=== PATIENT | male | born 1930 | race Caucasian/White ===

== ENCOUNTER 2017-05-09 17:51 | Inpatient (IN) | payer MEDICARE, OTHER ==
[~2017-05-09] VITALS: Ht 177.8 cm; Wt 80.0 kg
[2017-05-09] MEDS ORDERED: METH2.5T PO (18:27)
[2017-05-09] MEDS ORDERED: FOLI-17 PO (18:27)
[2017-05-09] MEDS ORDERED: PLEASE ENTER ALLERGIES MC SCH ×2 (18:30)
[2017-05-09] MEDS ORDERED: SODIUM CHLORIDE FLUSH 10ML SYR IVF ONE (18:30)
[2017-05-09 18:32] LABS: HEMATOCRIT 31.3 % (39.2-51.8); HEMOGLOBIN 10.6 g/dL (13.7-18.0); WHITE BLOOD COUNT 6.3 x10^3/uL (3.4-10)
[2017-05-09 18:41] LABS: ASPARTATE AMINO TRANSFERASE 20 U/L (15-37); BLOOD UREA NITROGEN 30 mg/dL (7-18)
[2017-05-09 18:46] LABS: IS PT STATUS REG ER OR PRE ER? YES
[2017-05-09] MEDS ORDERED: APIX2.5T PO (19:13)
[2017-05-09] MEDS ORDERED: SPIR25TA3 PO (19:13)
[2017-05-09] MEDS ORDERED: CARV6.2512 PO (19:13)
[2017-05-09] MEDS ORDERED: FURO-92 PO (19:13)
[2017-05-09] MEDS ORDERED: LISI-167 PO (19:13)
[2017-05-09] MEDS ORDERED: SIMV40TA3 PO (19:13)
[2017-05-09] MEDS ORDERED: HYDROCORTISONE 100 MG INJ. IVPush ONE (19:30)
[2017-05-09] MEDS ORDERED: SODIUM CHLORIDE 0.9% 1,000ML IVBOLUS ONE (19:30)
[2017-05-09] MEDS ORDERED: SODIUM CHLORIDE 0.9% 1,000 ML IV SCH (20:25)
[2017-05-09] MEDS ORDERED: ONDANSETRON 2MG/ML, 2ML IVPush PRN (20:30)
[2017-05-09] MEDS ORDERED: DOCUSATE 100 MG CAPSULE PO PRN (20:30)
[2017-05-09] MEDS ORDERED: POLYETHYLENE GLYCOL 17 GM PACKET PO PRN (20:30)
[2017-05-09] MEDS ORDERED: HYDROcodone/APAP 5/325 TABLET PO PRN (20:30)
[2017-05-09] MEDS ORDERED: morphine SULFATE 10 MG/ML, 1ML IVPush PRN (20:30)
[2017-05-09] MEDS ORDERED: APIXABAN 2.5 MG TABLET PO SCH (21:00)
[2017-05-09] MEDS: SIMVASTATIN 40 MG TABLET PO SCH (22:15)
[2017-05-10 02:32] VITALS: BP 92/58
[2017-05-10 06:15] LABS: BLOOD UREA NITROGEN 32 mg/dL (7-18)
[2017-05-10 06:18] LABS: IS PT STATUS REG ER OR PRE ER? NO
[2017-05-10 06:49] VITALS: BP 94/42
[2017-05-10] MEDS: SENNA/DOCUSATE TABLET PO SCH (09:00)
[2017-05-10] MEDS ORDERED: CEFAZOLIN PMX 1GM/50ML 50 ML IVPB ONE (09:30)
[2017-05-10] MEDS: METHOTREXATE 2.5 MG TABLET PO SCH (11:36)
[2017-05-10] MEDS: FOLIC ACID 1 MG TABLET PO SCH (11:36)
[2017-05-10 14:15] VITALS: BP 102/54
[2017-05-10 18:54] VITALS: BP 112/62
[2017-05-10] MEDS: SIMVASTATIN 40 MG TABLET PO SCH (20:18)
[2017-05-11 02:10] VITALS: BP 103/55
[2017-05-11 05:11] LABS: BLOOD UREA NITROGEN 21 mg/dL (7-18)
[2017-05-11 05:17] LABS: ASPARTATE AMINO TRANSFERASE 11 U/L (15-37)
[2017-05-11 06:54] VITALS: BP 118/52
[2017-05-11] MEDS ORDERED: SODIUM CHLORIDE 0.9% 1,000 ML IV SCH (07:00)
[2017-05-11] MEDS: SENNA/DOCUSATE TABLET PO SCH (09:00)
[2017-05-11] MEDS ORDERED: LISINOPRIL 5 MG TABLET PO SCH (09:00)
[2017-05-11] MEDS: METHOTREXATE 2.5 MG TABLET PO SCH (09:00)
[2017-05-11] MEDS ORDERED: MIDAZOLAM 1 MG/ML, 5ML ONE (09:21)
[2017-05-11] MEDS ORDERED: FENTANYL PF 100 MCG/2ML ONE (09:21)
[2017-05-11] MEDS ORDERED: LIDOCAINE 2%, 20ML ONE (09:22)
[2017-05-11] MEDS ORDERED: CEFAZOLIN 1,000 MG ONE (09:22)
[2017-05-11] MEDS ORDERED: CEFAZOLIN PMX 1GM/50ML 50 ML ONE (09:22)
[2017-05-11] MEDS ORDERED: CEFAZOLIN PMX 1GM/50ML 50 ML IV ONE (09:30)
[2017-05-11] MEDS: FOLIC ACID 1 MG TABLET PO SCH (12:58)
[2017-05-11 14:45] VITALS: BP 120/60
[2017-05-11] MEDS ORDERED: METHOTREXATE 2.5 MG TABLET PO ONE (15:00)
[2017-05-11] MEDS: ACETAMINOPHEN 325 MG TABLET PO PRN (15:25)
[2017-05-11] MEDS: CEFAZOLIN PMX 1GM/50ML 50 ML IVPB SCH (18:36)
[2017-05-11 18:59] VITALS: BP 111/51
[2017-05-11] MEDS: SIMVASTATIN 40 MG TABLET PO SCH (19:43)
[2017-05-12 00:41] VITALS: BP 128/62
[2017-05-12] MEDS: ACETAMINOPHEN 325 MG TABLET PO PRN (01:05)
[2017-05-12] MEDS: CEFAZOLIN PMX 1GM/50ML 50 ML IVPB SCH (02:06)
[2017-05-12 05:10] LABS: BLOOD UREA NITROGEN 16 mg/dL (7-18)
[2017-05-12 05:48] LABS: DIFF TOTAL CELLS COUNTED 100 CELL DIFF; HEMATOCRIT 29.2 % (39.2-51.8); WHITE BLOOD COUNT 6.4 x10^3/uL (3.4-10)
[2017-05-12 05:50] LABS: VERIFY COUNTS? YES
[2017-05-12 05:51] LABS: ANISOCYTOSIS 1+; POLYCHROMASIA 1+
[2017-05-12 06:42] VITALS: BP 112/57
[2017-05-12] MEDS: SENNA/DOCUSATE TABLET PO SCH (09:00)
[2017-05-12] MEDS: FOLIC ACID 1 MG TABLET PO SCH (09:24)
[2017-05-12] MEDS ORDERED: LISINOPRIL 5 MG TABLET PO SCH (09:42)
[2017-05-12] MEDS ORDERED: CARVEDILOL 6.25 MG TABLET PO SCH (10:00)
[2017-05-12] MEDS ORDERED: APIXABAN 5 MG TABLET PO SCH (10:00)
[2017-05-12] MEDS ORDERED: LISI5TAB7 PO (10:53)
[2017-05-12 11:54] VITALS: BP 117/61
[2017-05-12 12:30] VITALS: BP 118/58
[2017-05-17] MEDS ORDERED: METHOTREXATE 2.5 MG TABLET PO SCH ×3 (08:00→09:00)
== END 2017-05-12 14:45 | disposition home health service (06) | DRG 242 ==
LOC: ED 18:06 → EDIP 20:04 → 5SO 21:30 → DCLOUNGE 05-12 14:40
PROVIDERS: ADMIT Family Medicine; ATTEND Family Medicine
PROC: 02HK3JZ Insertion of Pacemaker Lead into Right Ventricle, Percutaneous Approach (ICD-10-PCS; principal; 2017-05-11)
PROC: 0JH604Z Insertion of Pacemaker, Single Chamber into Chest Subcutaneous Tissue and Fascia, Open Approach (ICD-10-PCS; 2017-05-11)
PROC: 4B02XSZ Measurement of Cardiac Pacemaker, External Approach (ICD-10-PCS; 2017-05-12)
DX: I49.5 Sick sinus syndrome (principal); N17.0 Acute kidney failure with tubular necrosis; I95.9 Hypotension, unspecified; D68.69 Other thrombophilia; I13.0 Hypertensive heart and chronic kidney disease with heart failure and stage 1 through stage 4 chronic kidney disease, or unspecified chronic kidney disease; G90.9 Disorder of the autonomic nervous system, unspecified; I50.22 Chronic systolic (congestive) heart failure; I48.2 Chronic atrial fibrillation; N18.3 Chronic kidney disease, stage 3 (moderate); E86.0 Dehydration; D53.9 Nutritional anemia, unspecified; E78.2 Mixed hyperlipidemia; G47.33 Obstructive sleep apnea (adult) (pediatric); I25.10 Atherosclerotic heart disease of native coronary artery without angina pectoris; I25.5 Ischemic cardiomyopathy; I35.1 Nonrheumatic aortic (valve) insufficiency; I73.9 Peripheral vascular disease, unspecified; M06.9 Rheumatoid arthritis, unspecified; Z96.641 Presence of right artificial hip joint; Z96.652 Presence of left artificial knee joint; I44.7 Left bundle-branch block, unspecified; M19.90 Unspecified osteoarthritis, unspecified site; Z79.899 Other long term (current) drug therapy; Z79.01 Long term (current) use of anticoagulants; I25.2 Old myocardial infarction; Z80.9 Family history of malignant neoplasm, unspecified; Z86.79 Personal history of other diseases of the circulatory system; Z87.891 Personal history of nicotine dependence
CPT/HCPCS: 33207; 36415; 70450; 71010; 80048; 80053; 80061; 81003; 84443; 84481; 84484; 85025; 85610; 85730; 93005; 93306; 96361; 96374; 99156; 99157; C1779; C1786; C1892; J0690; J2250; J3010; J3490; J8610; J1720; J7030

== ENCOUNTER 2018-02-10 16:10 | Emergency (ER) | payer MEDICARE, OTHER ==
[~2018-02-10] VITALS: Ht 172.7 cm; Wt 74.0 kg
[~2018-02-10 16:10] MED LIST: APIX2.5T PO; CARV6.2512 PO; FOLI-17 PO; FURO-92 PO; LISI-167 PO; LISI5TAB7 PO; METH2.5T PO; SIMV40TA3 PO; SPIR25TA5 PO
[2018-02-10 17:04] LABS: BASOPHILS # (AUTO) 0.02 x10^3/uL (0-0.1); BASOPHILS % (AUTO) 0 % (0-1); EOSINOPHILS # (AUTO) 0.12 x10^3/uL (0-0.4); EOSINOPHILS % (AUTO) 2 % (1-7); LYMPHOCYTES # (AUTO) 1.34 x10^3/uL (1-3.4); LYMPHOCYTES % (AUTO) 20 % (22-44); MD NO; MEAN CORPUSCULAR HEMOGLOBIN 33.3 pg (27.5-34.5); MEAN CORPUSCULAR HGB CONC 34.2 g/dL (33.2-36.2); MEAN CORPUSCULAR VOLUME 97.3 fL (81-97); MEAN PLATELET VOLUME 8.2 fL (7.4-10.4); MONOCYTES # (AUTO) 0.35 x10^3/uL (0.2-0.8); MONOCYTES % (AUTO) 5 % (2-9); NEUTROPHILS % (AUTO) 73 % (42-75); PLATELET COUNT 249 x10^3/uL (130-400); RED CELL DISTRIBUTION WIDTH 15.9 % (9.4-14.8)
[2018-02-10 17:12] LABS: INTERNATIONAL NORMALIZED RATIO 1.11 (0.93-1.1); PROTHROMBIN TIME 11.5 Seconds (9.6-11.5)
[2018-02-10 17:16] LABS: ALBUMIN 3.6 g/dL (3.4-5.0); ANION GAP 9 mmol/L (5-15); CALCIUM 8.9 mg/dL (8.5-10.1); CHLORIDE 108 mmol/L (98-107)
[2018-02-10 17:21] LABS: ALANINE AMINOTRANSFERASE 31 U/L (12-78); ALKALINE PHOSPHATASE 75 U/L (45-117); CREATININE 1.41 mg/dL (0.7-1.3); TOTAL PROTEIN 7.3 g/dL (6.4-8.2); TROPONIN I 0.019 ng/mL (0.000-0.045)
[2018-02-10] MEDS ORDERED: MECLIZINE CHEWABLE 25 MG TAB ONE (20:18)
[2018-02-10 20:24] VITALS: BP 119/53
[2018-02-10] MEDS ORDERED: MECLIZINE CHEWABLE 25 MG TAB PO ONE (20:30)
== END 2018-02-10 20:31 | disposition home or self-care (01) ==
LOC: ED 19:25
DX: R42 Dizziness and giddiness (principal); M54.2 Cervicalgia; R07.9 Chest pain, unspecified; I10 Essential (primary) hypertension; I25.2 Old myocardial infarction; E78.5 Hyperlipidemia, unspecified; M19.90 Unspecified osteoarthritis, unspecified site
CPT/HCPCS: 36415; 70450; 70498; 71045; 72125; 80053; 84484; 85025; 85610; 93005; 99285

== ENCOUNTER 2018-09-14 06:00 | Inpatient (IN) | payer MEDICARE, OTHER ==
[~2018-09-14] VITALS: Ht 172.7 cm; Wt 80.0 kg
--- NOTE | 2018-09-14 06:16 | NUR ---
pt reports falling down several times over past week and not being able to get up. pt also with n/v and legs feeling weak. per triage note pt was wheeled in rm by staffs
[2018-09-14] MEDS ORDERED: LISI-170 PO (06:34)
--- NOTE | 2018-09-14 06:48 | NUR ---
pt has left upper arm wound with redness after hit the table at home few weeks ago pt's heart rhythm is not well paced [employer] was called for check pacer vss otherwise stable except heart pacing. given urinal for ua at bedside understood call light within reach
[2018-09-14 06:56] LABS: BASOPHILS % (AUTO) 0 % (0-1); EOSINOPHILS % (AUTO) 0 % (1-7); LYMPHOCYTES # (AUTO) 0.31 x10^3/uL (1-3.4); LYMPHOCYTES % (AUTO) 6 % (22-44); MD NO; MEAN CORPUSCULAR HEMOGLOBIN 33.7 pg (27.5-34.5); MEAN CORPUSCULAR HGB CONC 33.9 g/dL (33.2-36.2); MEAN CORPUSCULAR VOLUME 99.3 fL (81-97); MEAN PLATELET VOLUME 7.4 fL (7.4-10.4); MONOCYTES # (AUTO) 0.16 x10^3/uL (0.2-0.8); MONOCYTES % (AUTO) 3 % (2-9); NEUTROPHILS # (AUTO) 4.94 x10^3/uL (1.8-6.8); NEUTROPHILS % (AUTO) 91 % (42-75); PLATELET COUNT 195 x10^3/uL (130-400); RED BLOOD COUNT 2.67 x10^6/uL (4.38-5.82); RED CELL DISTRIBUTION WIDTH 17.4 % (9.4-14.8)
[2018-09-14 07:07] LABS: INTERNATIONAL NORMALIZED RATIO 1.34 (0.93-1.1); PROTHROMBIN TIME 13.9 Seconds (9.6-11.5)
[2018-09-14 07:08] LABS: ALANINE AMINOTRANSFERASE 33 U/L (12-78); ALBUMIN 3.4 g/dL (3.4-5.0); ANION GAP 9 mmol/L (5-15); CALCIUM 8.3 mg/dL (8.5-10.1); CHLORIDE 109 mmol/L (98-107); CREATININE 1.27 mg/dL (0.7-1.3)
--- NOTE | 2018-09-14 07:09 | NUR ---
RECEIVED BEDSIDE REPORT FROM KODY CASTILLO. PT RESTING IN BED. AWAING [employer] INTERROGATION. AT BEDSIDE.
[2018-09-14 07:13] LABS: ALKALINE PHOSPHATASE 82 U/L (45-117); BILIRUBIN,TOTAL 1.3 mg/dL (0.2-1.0); TOTAL PROTEIN 6.4 g/dL (6.4-8.2); TROPONIN I 0.043 ng/mL (0.000-0.045)
--- NOTE | 2018-09-14 07:56 | NUR ---
INTERROGATOR AT BEDSIDE.
--- NOTE | 2018-09-14 08:58 | NUR ---
PT RESTING IN BED. PT AWARE OF URINE NEEDED.
[2018-09-14] MEDS ORDERED: SODIUM CHLORIDE 0.9% 1,000 ML IV SCH (09:28)
[2018-09-14] MEDS ORDERED: ONDANSETRON ODT 4 MG PO PRN (09:30)
[2018-09-14] MEDS ORDERED: HEPARIN 5,000 UNITS/ML, 1ML SQ SCH (09:30)
[2018-09-14] MEDS ORDERED: AMPICILLIN/SULBACTAM 3 GM in SODIUM CHLORIDE 0.9% 100 ML IV SCH (09:30)
[2018-09-14] MEDS ORDERED: PHARMACY MAY ADJ FOR RENAL FX MC PRN (09:30)
[2018-09-14] MEDS ORDERED: ACETAMINOPHEN 325 MG TABLET PO PRN (09:30)
[2018-09-14] MEDS ORDERED: ONDANSETRON 2MG/ML, 2ML IVPush PRN (09:30)
[2018-09-14 10:36] LABS: TROPONIN I 0.042 ng/mL (0.000-0.045)
[2018-09-14 10:38] LABS: MICROSCOPIC NOT IND
[2018-09-14 10:41] LABS: CULTURE INDICATED? NO
[2018-09-14 10:58] LABS: % IRON SATURATION 15 % (20-55); IRON LEVEL 31 mcg/dL (65-175); TOTAL IRON BINDING CAPACITY 206 mcg/dL (250-450); TRANSFERRIN 153 mg/dL (200-360)
--- NOTE | 2018-09-14 11:03 | NUR ---
report given to jesusita chaparro.
[2018-09-14 11:31] VITALS: BP 114/58
[2018-09-14 15:11] VITALS: BP 122/51
[2018-09-14 15:12] VITALS: BP 110/47
[2018-09-14] MEDS: AMPICILLIN/SULBACTAM 3 GM in SODIUM CHLORIDE 0.9% 100 ML IV SCH ×2 (17:44→23:42)
[2018-09-14 18:38] VITALS: BP 113/52
[2018-09-14 18:42] LABS: TROPONIN I 0.038 ng/mL (0.000-0.045)
[2018-09-14] MEDS: CARVEDILOL 3.125 MG TABLET PO SCH (21:03)
[2018-09-14] MEDS: SIMVASTATIN 40 MG TABLET PO SCH (21:03)
[2018-09-14] MEDS: APIXABAN 5 MG TABLET PO SCH (21:03)
[2018-09-15] VITALS (7 sets, daily range): BP systolic 103–123; BP diastolic 51–67
[2018-09-15] MEDS: AMPICILLIN/SULBACTAM 3 GM in SODIUM CHLORIDE 0.9% 100 ML IV SCH ×4 (05:20→23:10)
[2018-09-15 05:27] LABS: BASOPHILS # (AUTO) 0.01 x10^3/uL (0-0.1); BASOPHILS % (AUTO) 0 % (0-1); EOSINOPHILS # (AUTO) 0.01 x10^3/uL (0-0.4); EOSINOPHILS % (AUTO) 0 % (1-7); LYMPHOCYTES # (AUTO) 0.48 x10^3/uL (1-3.4); LYMPHOCYTES % (AUTO) 11 % (22-44); MD NO; MEAN CORPUSCULAR HEMOGLOBIN 32.9 pg (27.5-34.5); MEAN CORPUSCULAR HGB CONC 33.5 g/dL (33.2-36.2); MEAN CORPUSCULAR VOLUME 98.3 fL (81-97); MEAN PLATELET VOLUME 7.8 fL (7.4-10.4); MONOCYTES % (AUTO) 2 % (2-9); NEUTROPHILS % (AUTO) 86 % (42-75); PLATELET COUNT 172 x10^3/uL (130-400); RED CELL DISTRIBUTION WIDTH 17.1 % (9.4-14.8)
[2018-09-15 05:42] LABS: ALANINE AMINOTRANSFERASE 40 U/L (12-78); ANION GAP 8 mmol/L (5-15); CHLORIDE 111 mmol/L (98-107); CREATININE 1.17 mg/dL (0.7-1.3)
[2018-09-15 05:46] LABS: ALKALINE PHOSPHATASE 73 U/L (45-117); BILIRUBIN,TOTAL 1.1 mg/dL (0.2-1.0); CHOL/HDL RATIO 2.2; CHOLESTEROL, TOTAL 65 mg/dL (140-239); HDL CHOL % 45 % (26-37); HDL CHOLESTEROL (DIRECT) 29 mg/dL (40-60); LDL CHOLESTEROL,CALCULATED 24 mg/dL (54-169); LDL/HDL RATIO 0.8 (0.5-3.0); TOTAL PROTEIN 5.8 g/dL (6.4-8.2); TRIGLYCERIDES 60 mg/dL (50-200); VLDL CHOLESTEROL 12 mg/dL (0-25)
[2018-09-15] MEDS: CARVEDILOL 3.125 MG TABLET PO SCH ×2 (08:06→20:45)
[2018-09-15] MEDS: LISINOPRIL 10 MG TABLET PO SCH (08:06)
[2018-09-15] MEDS: FOLIC ACID 1 MG TABLET PO SCH (08:06)
[2018-09-15] MEDS: APIXABAN 5 MG TABLET PO SCH ×2 (08:06→20:45)
[2018-09-15] MEDS: SIMVASTATIN 40 MG TABLET PO SCH (20:45)
[2018-09-16] VITALS (7 sets, daily range): BP systolic 94–123; BP diastolic 50–75
[2018-09-16] MEDS: AMPICILLIN/SULBACTAM 3 GM in SODIUM CHLORIDE 0.9% 100 ML IV SCH ×4 (05:09→23:14)
[2018-09-16 05:27] LABS: BASOPHILS # (AUTO) 0.01 x10^3/uL (0-0.1); BASOPHILS % (AUTO) 0 % (0-1); EOSINOPHILS # (AUTO) 0.01 x10^3/uL (0-0.4); EOSINOPHILS % (AUTO) 0 % (1-7); LYMPHOCYTES % (AUTO) 11 % (22-44); MD NO; MEAN CORPUSCULAR HGB CONC 33.5 g/dL (33.2-36.2); MEAN CORPUSCULAR VOLUME 98.6 fL (81-97); MEAN PLATELET VOLUME 7.9 fL (7.4-10.4); MONOCYTES # (AUTO) 0.14 x10^3/uL (0.2-0.8); MONOCYTES % (AUTO) 3 % (2-9); NEUTROPHILS # (AUTO) 3.97 x10^3/uL (1.8-6.8); NEUTROPHILS % (AUTO) 86 % (42-75); PLATELET COUNT 163 x10^3/uL (130-400); RED BLOOD COUNT 2.59 x10^6/uL (4.38-5.82); RED CELL DISTRIBUTION WIDTH 16.9 % (9.4-14.8)
[2018-09-16 05:43] LABS: CHLORIDE 107 mmol/L (98-107)
[2018-09-16 05:48] LABS: ALBUMIN 2.8 g/dL (3.4-5.0); ANION GAP 11 mmol/L (5-15); CALCIUM 7.8 mg/dL (8.5-10.1); CREATININE 0.84 mg/dL (0.7-1.3)
[2018-09-16] MEDS: FOLIC ACID 1 MG TABLET PO SCH (11:19)
[2018-09-16] MEDS: APIXABAN 5 MG TABLET PO SCH ×2 (11:20→21:27)
[2018-09-16] MEDS: LISINOPRIL 10 MG TABLET PO SCH (11:20)
[2018-09-16] MEDS: CARVEDILOL 3.125 MG TABLET PO SCH ×2 (11:21→21:27)
[2018-09-16] MEDS: SIMVASTATIN 40 MG TABLET PO SCH (21:27)
[2018-09-17 00:33] VITALS: BP 106/64
[2018-09-17 03:33] LABS: BASOPHILS # (AUTO) 0.01 x10^3/uL (0-0.1); BASOPHILS % (AUTO) 0 % (0-1); EOSINOPHILS # (AUTO) 0.03 x10^3/uL (0-0.4); EOSINOPHILS % (AUTO) 1 % (1-7); LYMPHOCYTES # (AUTO) 0.59 x10^3/uL (1-3.4); LYMPHOCYTES % (AUTO) 13 % (22-44); MD NO; MEAN CORPUSCULAR HEMOGLOBIN 32.8 pg (27.5-34.5); MEAN CORPUSCULAR HGB CONC 33.1 g/dL (33.2-36.2); MEAN CORPUSCULAR VOLUME 99.2 fL (81-97); MEAN PLATELET VOLUME 7.9 fL (7.4-10.4); MONOCYTES # (AUTO) 0.18 x10^3/uL (0.2-0.8); MONOCYTES % (AUTO) 4 % (2-9); NEUTROPHILS # (AUTO) 3.61 x10^3/uL (1.8-6.8); NEUTROPHILS % (AUTO) 82 % (42-75); PLATELET COUNT 178 x10^3/uL (130-400); RED BLOOD COUNT 2.57 x10^6/uL (4.38-5.82); RED CELL DISTRIBUTION WIDTH 16.8 % (9.4-14.8)
[2018-09-17 03:41] LABS: ALBUMIN 2.8 g/dL (3.4-5.0); ANION GAP 6 mmol/L (5-15); CALCIUM 7.7 mg/dL (8.5-10.1); CHLORIDE 109 mmol/L (98-107)
[2018-09-17 03:47] LABS: ALANINE AMINOTRANSFERASE 45 U/L (12-78); ALKALINE PHOSPHATASE 80 U/L (45-117); BILIRUBIN,TOTAL 0.9 mg/dL (0.2-1.0); CREATININE 1.07 mg/dL (0.7-1.3); TOTAL PROTEIN 5.8 g/dL (6.4-8.2)
[2018-09-17] MEDS: AMPICILLIN/SULBACTAM 3 GM in SODIUM CHLORIDE 0.9% 100 ML IV SCH ×3 (04:22→17:10)
[2018-09-17 09:16] VITALS: BP 118/62
[2018-09-17] MEDS: CARVEDILOL 3.125 MG TABLET PO SCH (09:30)
[2018-09-17] MEDS: LISINOPRIL 10 MG TABLET PO SCH (09:30)
[2018-09-17] MEDS: APIXABAN 5 MG TABLET PO SCH (09:30)
[2018-09-17] MEDS: FOLIC ACID 1 MG TABLET PO SCH (09:30)
[2018-09-17 14:16] VITALS: BP 106/58
[2018-09-17] MEDS ORDERED: AMOX1TAB64 PO (15:32)
== END 2018-09-17 18:48 | disposition home health service (06) | DRG 603 ==
LOC: ED 08:01 → EDIP 08:22 → 4WST 12:00
PROVIDERS: ADMIT Internal Medicine; ATTEND Internal Medicine
PROC: 4B02XSZ Measurement of Cardiac Pacemaker, External Approach (ICD-10-PCS; principal; 2018-09-14)
DX: L03.114 Cellulitis of left upper limb (principal); I50.32 Chronic diastolic (congestive) heart failure; D68.69 Other thrombophilia; I47.2 Ventricular tachycardia; I48.91 Unspecified atrial fibrillation; E78.5 Hyperlipidemia, unspecified; R73.9 Hyperglycemia, unspecified; G47.33 Obstructive sleep apnea (adult) (pediatric); G89.29 Other chronic pain; I11.0 Hypertensive heart disease with heart failure; D53.9 Nutritional anemia, unspecified; M06.9 Rheumatoid arthritis, unspecified; I73.9 Peripheral vascular disease, unspecified; M54.5 Low back pain; I08.2 Rheumatic disorders of both aortic and tricuspid valves; I25.10 Atherosclerotic heart disease of native coronary artery without angina pectoris; L53.9 Erythematous condition, unspecified; I25.5 Ischemic cardiomyopathy; I44.7 Left bundle-branch block, unspecified; I08.1 Rheumatic disorders of both mitral and tricuspid valves; S49.92XA Unspecified injury of left shoulder and upper arm, initial encounter; W18.11XA Fall from or off toilet without subsequent striking against object, initial encounter; I25.2 Old myocardial infarction; Z79.01 Long term (current) use of anticoagulants; Z80.9 Family history of malignant neoplasm, unspecified; Z87.891 Personal history of nicotine dependence; Z95.0 Presence of cardiac pacemaker; Y93.89 Activity, other specified; Y92.091 Bathroom in other non-institutional residence as the place of occurrence of the external cause; Y99.8 Other external cause status
CPT/HCPCS: 36415; 70450; 71045; 72131; 80048; 80053; 80061; 81003; 82040; 82607; 82728; 83540; 83550; 83735; 83880; 84443; 84466; 84484; 85025; 85610; 85730; 87040; 93005; 93306; 96365; G0378; J0295; J7030

== ENCOUNTER 2020-06-11 00:26 | Inpatient (IN) | payer MEDICARE, OTHER ==
[~2020-06-11] VITALS: Ht 177.8 cm; Wt 76.9 kg
[~2020-06-11 00:26] MED LIST changes: +AMOX1TAB64 PO; +LISI-170 PO; +SIMV40TA20 PO; -SIMV40TA3 PO
[2020-06-11] MEDS ORDERED: ONDANSETRON 2MG/ML, 2ML IVPush ONE (01:00)
[2020-06-11] MEDS ORDERED: SODIUM CHLORIDE FLUSH 10ML SYR IVF ONE (01:00)
[2020-06-11] MEDS ORDERED: MORPHINE SULFATE 4 MG/ML, 1ML IVPush PRN (01:00)
--- NOTE | 2020-06-11 01:07 | NUR ---
XR completed. EKG completed. 20 gauge IV left AC started. Cultures drawn.
[2020-06-11] MEDS ORDERED: ONDANSETRON 2MG/ML, 2ML ONE (01:09)
[2020-06-11] MEDS ORDERED: MORPHINE SULFATE 4 MG/ML, 1ML ONE (01:09)
[2020-06-11 01:14] LABS: BASOPHILS % (AUTO) 0 % (0-1); EOSINOPHILS % (AUTO) 1 % (1-7); LYMPHOCYTES % (AUTO) 11 % (22-44); MEAN CORPUSCULAR HEMOGLOBIN 30.7 pg (27.5-34.5); MEAN CORPUSCULAR HGB CONC 32.7 g/dL (33.2-36.2); MEAN PLATELET VOLUME 8.2 fL (7.4-10.4); MONOCYTES % (AUTO) 3 % (2-9); NEUTROPHILS % (AUTO) 86 % (42-75); PLATELET COUNT 361 x10^3/uL (130-400); RED BLOOD COUNT 4.27 x10^6/uL (4.38-5.82); RED CELL DISTRIBUTION WIDTH 18.8 % (9.4-14.8)
[2020-06-11 01:18] LABS: MD NO
[2020-06-11 01:23] LABS: ALANINE AMINOTRANSFERASE 99 U/L (12-78); ALBUMIN 2.9 g/dL (3.4-5.0); ANION GAP 6 mmol/L (5-15); CALCIUM 8.6 mg/dL (8.5-10.1); CHLORIDE 105 mmol/L (98-107); CREATININE 2.41 mg/dL (0.7-1.3)
--- NOTE | 2020-06-11 01:25 | NUR ---
Pt with eyes closed, breathing very irregular, appears to have periods of apnea where 02 sats will decrease to low 80's then back up to 95%. Placing oxymask on pt. 2 L.
[2020-06-11 01:27] LABS: ALKALINE PHOSPHATASE 174 U/L (45-117); TOTAL PROTEIN 7.4 g/dL (6.4-8.2)
[2020-06-11 01:30] LABS: TROPONIN I 0.194 ng/mL (0.000-0.045)
--- NOTE | 2020-06-11 01:35 | NUR ---
Informed Dr. Pinzon of pt.'s troponin level of 0.19
--- NOTE | 2020-06-11 01:38 | NUR ---
This RN has been at bedside since pt.'s arrival to this ED room. Pt.'s also at bedside.
--- NOTE | 2020-06-11 01:39 | NUR ---
Pt resting, eyes closed, breathing still irregular. Pt reports the morphine helped with the pain.
--- NOTE | 2020-06-11 01:50 | NUR ---
This RN going to CT with pt. on monitor.
--- NOTE | 2020-06-11 01:58 | NUR ---
Pt back to room from CT.
--- NOTE | 2020-06-11 02:00 | NUR ---
Pt breathing irregular, 02 sats with oxymask on 2L staying 94% or greater. RN at bedside.
[2020-06-11 02:04] LABS: INTERNATIONAL NORMALIZED RATIO 1.22 (0.93-1.1); PROTHROMBIN TIME 12.9 Seconds (9.6-11.5)
--- NOTE | 2020-06-11 02:07 | NUR ---
equipment monitor phototypesetting shows pt is in a-fib, left bundle branch, paced.
--- NOTE | 2020-06-11 02:23 | NUR ---
RN at bedside. PT.'s at bedside. Pt reports they don't feel any pain. Appears more comfortable and relaxed. Breathing more regular now.
--- NOTE | 2020-06-11 02:27 | NUR ---
Provided pt. additional warm blanket.
--- NOTE | 2020-06-11 02:43 | NUR ---
Dr. Pinzon at bedside updating pt. on plan- pt will be admitted.
[2020-06-11] MEDS ORDERED: FUROSEMIDE 40 MG/4 ML ONE (02:47)
[2020-06-11] MEDS ORDERED: NITROGLYCERIN OINT 2%, 1GM TP ONE ×2 (02:47→03:00)
[2020-06-11] MEDS ORDERED: ASPIRIN 81 MG TABLET CHEW ONE ×2 (02:48→03:00)
[2020-06-11] MEDS ORDERED: ASPIRIN 81 MG TABLET CHEW PO ONE (03:00)
[2020-06-11] MEDS ORDERED: FUROSEMIDE 40 MG/4 ML IVPush ONE (03:00)
--- NOTE | 2020-06-11 03:10 | NUR ---
Lasix, aspirin, nitro administered. Provided pt new mask per pt. request. Provided pt. urinal at bedside, instructed to call with call light if needs help.
--- NOTE | 2020-06-11 03:18 | NUR ---
report received from earlene chaparro
[2020-06-11 03:50] LABS: MICROSCOPIC NOT IND
--- NOTE | 2020-06-11 04:18 | NUR ---
pt sleeping, resp even and unlabored. at bedside
[2020-06-11] MEDS ORDERED: GABAPENTIN 300 MG CAPSULE PO PRN (04:30)
[2020-06-11] MEDS ORDERED: MELATONIN 5 MG TABLET PO PRN (04:30)
[2020-06-11] MEDS ORDERED: hydrALAzine 20 MG/ML, 1ML IVPush PRN (04:30)
[2020-06-11] MEDS ORDERED: ONDANSETRON 2MG/ML, 2ML IVPush PRN (04:30)
[2020-06-11] MEDS ORDERED: LABETALOL 5MG/ML, 20ML IVPush PRN (04:30)
[2020-06-11] MEDS ORDERED: ACETAMINOPHEN 325 MG TABLET PO PRN (04:30)
[2020-06-11] MEDS ORDERED: morphine SULFATE 10 MG/ML, 1ML IVPush PRN (04:30)
[2020-06-11] MEDS ORDERED: PHARMACY MAY ADJ FOR RENAL FX MC PRN (04:30)
[2020-06-11] MEDS ORDERED: NITROGLYCERIN 0.4 MG BOTTLE (25 TABS) SL PRN (04:30)
[2020-06-11] MEDS ORDERED: ASPIRIN 325 MG TABLET ONE (05:07)
[2020-06-11] MEDS ORDERED: ASPIRIN 325 MG TABLET EC ONE (05:10)
[2020-06-11] MEDS: ASPIRIN 325 MG TABLET EC PO SCH (05:11)
--- NOTE | 2020-06-11 05:18 | NUR ---
pt resting, resp even and unlabored. pt requesting NC instead of oxymask. at bedside, awaiting room in unit.
--- NOTE | 2020-06-11 06:05 | NUR ---
report given to bambi chaparro
[2020-06-11 06:27] LABS: TROPONIN I 0.175 ng/mL (0.000-0.045)
[2020-06-11 06:51] VITALS: BP 144/64
[2020-06-11] MEDS: FUROSEMIDE 40 MG/4 ML IV SCH ×2 (07:30→17:10)
[2020-06-11 07:56] VITALS: BP 125/63
[2020-06-11] MEDS: SENNA/DOCUSATE TABLET PO SCH (09:00)
[2020-06-11] MEDS: APIXABAN 2.5 MG TABLET PO SCH ×2 (09:52→22:37)
[2020-06-11] MEDS: CARVEDILOL 3.125 MG TABLET PO SCH ×2 (09:53→22:36)
[2020-06-11 12:10] VITALS: BP 116/61
[2020-06-11 12:38] LABS: TROPONIN I 0.157 ng/mL (0.000-0.045)
[2020-06-11 20:50] VITALS: BP 116/70
[2020-06-11] MEDS: MELATONIN 5 MG TABLET PO SCH (22:37)
[2020-06-12 02:31] VITALS: BP 94/56
[2020-06-12] MEDS: ASPIRIN 325 MG TABLET EC PO SCH (05:26)
[2020-06-12 05:48] LABS: BASOPHILS % (AUTO) 0 % (0-1); EOSINOPHILS % (AUTO) 0 % (1-7); LYMPHOCYTES % (AUTO) 10 % (22-44); MEAN CORPUSCULAR HEMOGLOBIN 30.8 pg (27.5-34.5); MEAN CORPUSCULAR HGB CONC 32.7 g/dL (33.2-36.2); MEAN PLATELET VOLUME 7.8 fL (7.4-10.4); MONOCYTES % (AUTO) 7 % (2-9); NEUTROPHILS % (AUTO) 83 % (42-75); PLATELET COUNT 259 x10^3/uL (130-400); RED BLOOD COUNT 4.07 x10^6/uL (4.38-5.82)
[2020-06-12 05:51] LABS: MD NO
[2020-06-12 06:03] LABS: ANION GAP 9 mmol/L (5-15); CALCIUM 8.8 mg/dL (8.5-10.1); CHLORIDE 105 mmol/L (98-107); CREATININE 2.23 mg/dL (0.7-1.3)
[2020-06-12 06:54] VITALS: BP 133/67
[2020-06-12 08:13] VITALS: BP 127/76
[2020-06-12] MEDS: FUROSEMIDE 40 MG/4 ML IV SCH ×2 (08:19→17:12)
[2020-06-12] MEDS: CARVEDILOL 3.125 MG TABLET PO SCH ×2 (08:19→20:48)
[2020-06-12] MEDS: APIXABAN 2.5 MG TABLET PO SCH ×2 (08:19→20:47)
[2020-06-12] MEDS: SENNA/DOCUSATE TABLET PO SCH (08:20)
[2020-06-12 12:35] VITALS: BP 110/64
[2020-06-12] MEDS ORDERED: GABAPENTIN 300 MG CAPSULE PO PRN (16:00)
[2020-06-12] MEDS ORDERED: GABAPENTIN 100 MG CAPSULE PO PRN (16:30)
[2020-06-12 17:11] VITALS: BP 116/56
[2020-06-12 19:20] VITALS: BP 116/58
[2020-06-12] MEDS: MELATONIN 5 MG TABLET PO SCH (20:47)
[2020-06-12 21:16] LABS: MICROSCOPIC NOT IND
[2020-06-13 01:20] VITALS: BP 114/64
[2020-06-13] MEDS: ASPIRIN 325 MG TABLET EC PO SCH (05:24)
[2020-06-13 05:33] LABS: ALBUMIN 2.4 g/dL (3.4-5.0); ANION GAP 6 mmol/L (5-15); CALCIUM 8.6 mg/dL (8.5-10.1); CHLORIDE 102 mmol/L (98-107); CREATININE 2.01 mg/dL (0.7-1.3)
[2020-06-13 07:08] VITALS: BP 131/68
[2020-06-13] MEDS: CEFDINIR 300 MG CAPSULE PO SCH (08:43)
[2020-06-13] MEDS: SENNA/DOCUSATE TABLET PO SCH (08:44)
[2020-06-13] MEDS: CARVEDILOL 3.125 MG TABLET PO SCH ×2 (08:44→21:37)
[2020-06-13] MEDS: DOXYCYCLINE 100MG CAP PO SCH ×2 (08:44→21:37)
[2020-06-13] MEDS: APIXABAN 2.5 MG TABLET PO SCH ×2 (08:44→21:37)
[2020-06-13] MEDS: SPIRONOLACTONE 25 MG TABLET PO SCH (08:44)
[2020-06-13] MEDS: FUROSEMIDE 40 MG/4 ML IV SCH ×2 (08:45→17:29)
[2020-06-13 16:10] VITALS: BP 133/56
[2020-06-13 20:39] VITALS: BP 116/67
[2020-06-13] MEDS: MELATONIN 5 MG TABLET PO SCH (21:37)
[2020-06-14 01:17] VITALS: BP 118/56
[2020-06-14] MEDS: ASPIRIN 325 MG TABLET EC PO SCH (05:46)
[2020-06-14] MEDS: CEFDINIR 300 MG CAPSULE PO SCH (08:05)
[2020-06-14] MEDS: DOXYCYCLINE 100MG CAP PO SCH ×2 (08:05→21:18)
[2020-06-14] MEDS: SPIRONOLACTONE 25 MG TABLET PO SCH (08:05)
[2020-06-14] MEDS: FUROSEMIDE 40 MG/4 ML IV SCH ×2 (08:06→17:09)
[2020-06-14] MEDS: CARVEDILOL 3.125 MG TABLET PO SCH ×2 (08:06→21:18)
[2020-06-14] MEDS: SENNA/DOCUSATE TABLET PO SCH (08:06)
[2020-06-14] MEDS: APIXABAN 2.5 MG TABLET PO SCH ×2 (08:06→21:18)
[2020-06-14 09:58] VITALS: BP 132/66
[2020-06-14 12:35] VITALS: BP 121/60
[2020-06-14 13:50] VITALS: BP 134/58
[2020-06-14 20:00] VITALS: BP 116/61
[2020-06-14] MEDS: MELATONIN 5 MG TABLET PO SCH (21:18)
[2020-06-15 02:00] VITALS: BP 120/60
[2020-06-15 05:29] LABS: BASOPHILS % (AUTO) 1 % (0-1); EOSINOPHILS % (AUTO) 1 % (1-7); LYMPHOCYTES % (AUTO) 20 % (22-44); MEAN CORPUSCULAR HEMOGLOBIN 31.2 pg (27.5-34.5); MEAN CORPUSCULAR HGB CONC 33.9 g/dL (33.2-36.2); MEAN PLATELET VOLUME 7.5 fL (7.4-10.4); MONOCYTES % (AUTO) 7 % (2-9); NEUTROPHILS % (AUTO) 72 % (42-75); PLATELET COUNT 272 x10^3/uL (130-400); RED BLOOD COUNT 3.71 x10^6/uL (4.38-5.82); RED CELL DISTRIBUTION WIDTH 17.6 % (9.4-14.8)
[2020-06-15 05:31] LABS: MD NO
[2020-06-15 05:40] LABS: ALBUMIN 2.5 g/dL (3.4-5.0); ANION GAP 7 mmol/L (5-15); CALCIUM 8.5 mg/dL (8.5-10.1); CHLORIDE 103 mmol/L (98-107); CREATININE 1.52 mg/dL (0.7-1.3)
[2020-06-15] MEDS: ASPIRIN 325 MG TABLET EC PO SCH (06:09)
[2020-06-15 06:36] VITALS: BP 117/52
[2020-06-15] MEDS: FUROSEMIDE 40 MG/4 ML IV SCH (09:09)
[2020-06-15] MEDS: APIXABAN 2.5 MG TABLET PO SCH ×2 (09:09→20:58)
[2020-06-15] MEDS: CEFDINIR 300 MG CAPSULE PO SCH (09:09)
[2020-06-15] MEDS: DOXYCYCLINE 100MG CAP PO SCH ×2 (09:09→20:57)
[2020-06-15] MEDS: SENNA/DOCUSATE TABLET PO SCH (09:09)
[2020-06-15] MEDS: CARVEDILOL 3.125 MG TABLET PO SCH ×2 (09:10→20:57)
[2020-06-15] MEDS: SPIRONOLACTONE 25 MG TABLET PO SCH (09:10)
[2020-06-15] MEDS ORDERED: FURO20TA3 PO (11:39)
[2020-06-15] MEDS ORDERED: ATOR40TA78 PO (11:43)
[2020-06-15 12:44] VITALS: BP 104/59
[2020-06-15 20:29] VITALS: BP 124/63
[2020-06-15 20:54] VITALS: BP 134/66
[2020-06-15] MEDS: ATORVASTATIN 40 MG TABLET PO SCH (20:58)
[2020-06-15] MEDS: MELATONIN 5 MG TABLET PO SCH (20:58)
[2020-06-16] VITALS (7 sets, daily range): BP systolic 82–134; BP diastolic 40–68
[2020-06-16] MEDS: ASPIRIN 325 MG TABLET EC PO SCH (05:55)
[2020-06-16] MEDS: APIXABAN 2.5 MG TABLET PO SCH ×2 (09:18→21:22)
[2020-06-16] MEDS: LISINOPRIL 20 MG TABLET PO SCH (09:18)
[2020-06-16] MEDS: DOXYCYCLINE 100MG CAP PO SCH ×2 (09:19→21:22)
[2020-06-16] MEDS: CEFDINIR 300 MG CAPSULE PO SCH (09:19)
[2020-06-16] MEDS: SPIRONOLACTONE 25 MG TABLET PO SCH (09:20)
[2020-06-16] MEDS: FOLIC ACID 1 MG TABLET PO SCH (09:20)
[2020-06-16] MEDS: CARVEDILOL 3.125 MG TABLET PO SCH ×2 (09:20→19:50)
[2020-06-16] MEDS: SENNA/DOCUSATE TABLET PO SCH (09:22)
[2020-06-16] MEDS ORDERED: SODIUM CHLORIDE 0.9%, 500ML IVBOLUS ONE (14:00)
[2020-06-16] MEDS: MELATONIN 5 MG TABLET PO SCH (21:22)
[2020-06-16] MEDS: ATORVASTATIN 40 MG TABLET PO SCH (21:22)
[2020-06-17 01:42] VITALS: BP 113/70
[2020-06-17] MEDS: ASPIRIN 325 MG TABLET EC PO SCH (06:33)
[2020-06-17 06:40] VITALS: BP 112/63
[2020-06-17] MEDS ORDERED: FUROSEMIDE 20 MG TABLET PO SCH (09:00)
[2020-06-17] MEDS ORDERED: METHOTREXATE 2.5 MG TABLET PO SCH (09:00)
[2020-06-17] MEDS ORDERED: SPIRONOLACTONE 25 MG TABLET PO SCH (09:00)
[2020-06-17] MEDS: CARVEDILOL 3.125 MG TABLET PO SCH (09:23)
[2020-06-17] MEDS: SENNA/DOCUSATE TABLET PO SCH (10:03)
[2020-06-17] MEDS: CEFDINIR 300 MG CAPSULE PO SCH (10:03)
[2020-06-17] MEDS: APIXABAN 2.5 MG TABLET PO SCH (10:04)
[2020-06-17] MEDS: DOXYCYCLINE 100MG CAP PO SCH (10:04)
[2020-06-17] MEDS: FOLIC ACID 1 MG TABLET PO SCH (10:04)
[2020-06-17] MEDS: LISINOPRIL 20 MG TABLET PO SCH (10:05)
[2020-06-17] MEDS: SPIRONOLACTONE 25 MG TABLET PO SCH (10:22)
== END 2020-06-17 12:00 | disposition home or self-care (01) | DRG 280 ==
LOC: ED 03:54 → EDIP 04:34 → 5SO 06:24
PROVIDERS: ADMIT Family Medicine; ATTEND Hospitalist
DX: I13.0 Hypertensive heart and chronic kidney disease with heart failure and stage 1 through stage 4 chronic kidney disease, or unspecified chronic kidney disease (principal); I21.A1 Myocardial infarction type 2; J96.01 Acute respiratory failure with hypoxia; J18.9 Pneumonia, unspecified organism; I50.43 Acute on chronic combined systolic (congestive) and diastolic (congestive) heart failure; E87.2 Acidosis; E87.1 Hypo-osmolality and hyponatremia; D68.69 Other thrombophilia; I47.2 Ventricular tachycardia; N17.9 Acute kidney failure, unspecified; R18.8 Other ascites; E78.5 Hyperlipidemia, unspecified; G47.33 Obstructive sleep apnea (adult) (pediatric); I25.10 Atherosclerotic heart disease of native coronary artery without angina pectoris; I25.5 Ischemic cardiomyopathy; I44.7 Left bundle-branch block, unspecified; I48.91 Unspecified atrial fibrillation; I73.9 Peripheral vascular disease, unspecified; I95.2 Hypotension due to drugs; K57.90 Diverticulosis of intestine, part unspecified, without perforation or abscess without bleeding; K80.20 Calculus of gallbladder without cholecystitis without obstruction; M06.9 Rheumatoid arthritis, unspecified; T50.2X5A Adverse effect of carbonic-anhydrase inhibitors, benzothiadiazides and other diuretics, initial encounter; Z80.9 Family history of malignant neoplasm, unspecified; Z87.891 Personal history of nicotine dependence; Z95.0 Presence of cardiac pacemaker
CPT/HCPCS: 36415; 71045; 74176; 80048; 80053; 80069; 81003; 83605; 83690; 83735; 83880; 84132; 84145; 84484; 85025; 85610; 85730; 86140; 87040; 93005; 93306; 96374; 96375; 99285; G0378; J1940; J2405; J8610; J2270; J7040